=== PATIENT | female | born 2000 ===

== ENCOUNTER 2021-12-15 09:17 | Emergency (ER) | payer OTHER, MEDICAID ==
[2021-12-15] MEDS ORDERED: ONDANSETRON 4 MG/2 ML INJ IV ONE (11:29)
[2021-12-15] MEDS ORDERED: MORPHINE 2 MG/1 ML INJ IV ONE (11:30)
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
[2021-12-15 12:17] LABS: Basophils % (Auto) 0.4 % (0.0-1.8); Eosinophils # (Auto) 0.1 K/mm3 (0.0-0.4); Eosinophils % (Auto) 1.5 % (0.0-4.3); Hematocrit 40.7 % (30.3-42.9); Hemoglobin 13.3 gm/dl (10.1-14.3); Lymphocytes # (Auto) 1.8 K/mm3 (1.2-5.4); Lymphocytes % (Auto) 21.8 % (13.4-35.0); Mean Corpuscular HGB Conc 33 % (30-34); Mean Corpuscular Volume 95 fl (79-97); Monocytes # (Auto) 0.5 K/mm3 (0.0-0.8); Monocytes % (Auto) 5.5 % (0.0-7.3); Platelet Count 254 K/mm3 (140-440); Red Blood Count 4.29 M/mm3 (3.65-5.03); Red Cell Distribution Width 11.8 % (13.2-15.2)
[2021-12-15 12:35] LABS: Alanine Aminotransferase 21 units/L (7-56); Albumin 4.3 g/dL (3.9-5); Blood Urea Nitrogen 13 mg/dL (7-17); Hemolysis Index 5
[2021-12-15 12:47] LABS: BUN/Creatinine Ratio 22
[2021-12-15 13:12] LABS: HCG Qualitative,Urine Negative (Negative)
--- NOTE | 2021-12-15 14:13 | XRay Report ---
Bilateral hips 3 views INDICATION: Hip pain FINDINGS: Bilateral femoral heads well-seated in the acetabulum. No acute fracture or dislocation. Vi sualized sacrum appears normal. Superior and inferior pubic rami appear normal Signer Name: Darrell Medina MD Signed: 12/15/2021 2:09 PM Workstation Name: [id number]
[2021-12-15 14:43] VITALS: BP 113/70
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
== END 2021-12-15 16:14 | disposition home or self-care (01) ==
LOC: ED 09:17
DX: S29.011A Strain of muscle and tendon of front wall of thorax, initial encounter (principal); R07.89 Other chest pain; M54.2 Cervicalgia; R51.9 Headache, unspecified; M25.551 Pain in right hip; V87.7XXA Person injured in collision between other specified motor vehicles (traffic), initial encounter; Y93.89 Activity, other specified; Y92.488 Other paved roadways as the place of occurrence of the external cause; Y99.8 Other external cause status
CPT/HCPCS: 36415; 70450; 71260; 72125; 73521; 80053; 81025; 85025; 96374; 96375; 99285; J2270; J2405; Q9967